=== PATIENT | male | born 1960 | race Caucasian/White ===

== ENCOUNTER 2017-05-26 15:33 | Inpatient (IN) | payer MEDICAID ==
[~2017-05-26] VITALS: Ht 188 cm; Wt 74.9 kg
[2017-05-26 17:03] LABS: Basophils # (auto) 0 uL; Basophils % (auto) 0.7 % (0.0-2.0); CONDITION Y; DEFINITIVE SEE PRINTOUT; Eosinophils # (auto) 0 uL; Hematocrit 34.3 % (41.0-53.0); Hemoglobin 11.6 g/dL (13.5-17.5); Lymphocytes # (auto) 1.3 uL; Lymphocytes % (auto) 25.9 % (10.0-50.0); Mean Corpuscular Hemoglobin 28.6 pg (28.0-32.0); Mean Corpuscular Hgb Conc. 33.8 g/dL (32.0-36.0); Mean Corpuscular Volume 84.4 fL (80.0-100.0); Mean Platelet Volume 9.4 fL (7.4-10.4); Monocytes # (auto) 0.6 uL; Monocytes % (auto) 11.7 % (0.0-12.0); Neutrophils # (auto) 3.1 uL; Neutrophils % (auto) 61.7 % (37.0-80.0); Platelet Count (auto) 120 10^3/uL (140-450); Red Cell Distribution Width 19.8 % (11.6-16.0)
[2017-05-26 17:14] LABS: Urine Bilirubin Negative (Negative); Urine Blood TRACE /uL (Negative); Urine Color Yellow (Yellow); Urine Glucose Normal (Normal); Urine Ketone Negative (Negative); Urine Nitrite Negative (Negative); Urine RBC 2 /hpf (0 - 3); Urine Squamous Epithelial Cell FEW /hpf (<5); Urine Urobilinogen Normal (Negative); Urine pH 7.5 (5.0-8.0)
[2017-05-26 17:19] LABS: INR 1.36 (0.9-1.15); Partial Thromboplastin Time 34.8 sec (22.64-33.71); Prothrombin Time 14.9 sec (9.37-12.3)
[2017-05-26 17:27] LABS: Platelet Estimate Decreased
[2017-05-26 17:29] LABS: Burr Cells FEW; Ovalocytes FEW
[2017-05-26 17:30] LABS: Anisocytosis Slight
[2017-05-26 17:31] LABS: Tear Drop Cells FEW
[2017-05-26 17:38] LABS: Albumin 2.9 g/dL (3.4-5.0); Anion Gap 12 (5-15); Aspartate Aminotransferase 53 U/L (15-37); Blood Urea Nitrogen 14 mg/dL (7-18); Calcium 8.4 mg/dL (8.5-10.1); Carbon Dioxide 21 mmol/L (21-32); Chloride 104 mmol/L (98-107); GFR African American 100 mL/min; GFR Non-African American 82 mL/min; Glucose 90 mg/dL (74-106); Magnesium 2.7 mg/dL (1.6-2.6); Potassium 4.3 mmol/L (3.5-5.1); Sodium 137 mmol/L (136-145)
[2017-05-26 17:43] LABS: Alkaline Phosphatase 116 U/L (45-117); Bilirubin, Total 3.4 mg/dL (0.2-1.0); Total Protein 7.4 g/dL (6.4-8.2)
[2017-05-26] MEDS ORDERED: DEXTROSE (50%) 50ML SYRG IV ONE (17:45)
[2017-05-26] MEDS ORDERED: LORazepam 2MG/ML-1ML VIAL IV PRN (21:15)
[2017-05-26] MEDS ORDERED: LACTULOSE 20Gm/30ML SOLN PO ONE ×2 (21:15)
[2017-05-26] MEDS ORDERED: FURO40TA4 PO (21:19)
[2017-05-26] MEDS ORDERED: NEO500T GT (21:19)
[2017-05-26] MEDS ORDERED: SPIR50TA23 PO (21:20)
[2017-05-26] MEDS ORDERED: PANT40TA2 PO (21:21)
[2017-05-26] MEDS ORDERED: LACT10SO3 PO (21:21)
[2017-05-26] MEDS ORDERED: FOLITAB22 PO (21:25)
[2017-05-26] MEDS ORDERED: CYA100I IM (21:25)
[2017-05-26 21:41] LABS: Amylase 65 U/L (25-115)
[2017-05-26] MEDS ORDERED: LACTULOSE 20Gm/30ML SOLN PO SCH (22:00)
[2017-05-27 05:00] VITALS: BP 113/70
[2017-05-27 06:28] LABS: Basophils # (auto) 0 uL; Basophils % (auto) 0.5 % (0.0-2.0); CONDITION Y; Eosinophils # (auto) 0.1 uL; Eosinophils % (auto) 1.4 % (0.0-7.0); Hemoglobin 16.2 g/dL (13.5-17.5); Lymphocytes # (auto) 1.9 uL; Lymphocytes % (auto) 21.6 % (10.0-50.0); Mean Corpuscular Hemoglobin 29.9 pg (28.0-32.0); Mean Corpuscular Hgb Conc. 34.5 g/dL (32.0-36.0); Mean Corpuscular Volume 86.7 fL (80.0-100.0); Mean Platelet Volume 9.6 fL (7.4-10.4); Monocytes # (auto) 0.8 uL; Monocytes % (auto) 8.4 % (0.0-12.0); Neutrophils # (auto) 6.1 uL; Neutrophils % (auto) 68.1 % (37.0-80.0); Platelet Count (auto) 337 10^3/uL (140-450)
[2017-05-27 07:41] VITALS: BP 119/65
[2017-05-27 08:02] LABS: Albumin 3.3 g/dL (3.4-5.0); Calcium 8.9 mg/dL (8.5-10.1); Potassium 3.7 mmol/L (3.5-5.1)
[2017-05-27 08:05] LABS: Bilirubin, Total 0.6 mg/dL (0.2-1.0); Total Protein 7.5 g/dL (6.4-8.2)
[2017-05-27] MEDS: PANTOPRAZOLE 40 MG TAB PO SCH (09:01)
[2017-05-27] MEDS: FOLIC ACID 1 MG TAB PO SCH (09:01)
[2017-05-27] MEDS: SPIRONOLACTONE 25 MG TAB PO SCH (09:01)
[2017-05-27] MEDS: ONDANSETRON HCL 4 MG/2 ML VIAL IV PRN (11:00)
[2017-05-27 12:12] VITALS: BP 110/65
[2017-05-27] MEDS: THIAMINE INJ 100 MG, MULTIPLE VITAMIN 10 ML, FOLIC ACID 1 MG, MAGNESIUM SULF SDV 50% 8 ... IV SCH ×5 (12:33)
[2017-05-27 17:23] VITALS: BP 101/57
[2017-05-27 22:00] VITALS: BP 110/64
[2017-05-28 05:00] VITALS: BP 112/66
[2017-05-28 06:40] LABS: Basophils # (auto) 0 uL; Basophils % (auto) 0.8 % (0.0-2.0); CONDITION Y; DEFINITIVE SEE PRINTOUT; Eosinophils # (auto) 0 uL; Eosinophils % (auto) 0.2 % (0.0-7.0); Hematocrit 31.5 % (41.0-53.0); Hemoglobin 10.6 g/dL (13.5-17.5); Lymphocytes # (auto) 1.6 uL; Lymphocytes % (auto) 34.7 % (10.0-50.0); Mean Corpuscular Hemoglobin 28.5 pg (28.0-32.0); Mean Corpuscular Hgb Conc. 33.8 g/dL (32.0-36.0); Mean Corpuscular Volume 84.5 fL (80.0-100.0); Mean Platelet Volume 9.6 fL (7.4-10.4); Monocytes # (auto) 0.5 uL; Monocytes % (auto) 11.1 % (0.0-12.0); Neutrophils # (auto) 2.4 uL; Neutrophils % (auto) 53.2 % (37.0-80.0); Platelet Count (auto) 101 10^3/uL (140-450); Red Cell Distribution Width 19.5 % (11.6-16.0); White Blood Cell 4.6 10^3/uL (4.4-10.8)
[2017-05-28 06:57] LABS: Albumin 2.7 g/dL (3.4-5.0); BUN/Creatinine Ratio 16.3; Bilirubin, Total 4.4 mg/dL (0.2-1.0); Calcium 8.6 mg/dL (8.5-10.1); Magnesium 2.4 mg/dL (1.6-2.6); Potassium 4.1 mmol/L (3.5-5.1); Total Protein 6.7 g/dL (6.4-8.2)
[2017-05-28 08:00] VITALS: BP 104/63
[2017-05-28] MEDS: SPIRONOLACTONE 25 MG TAB PO SCH (09:16)
[2017-05-28] MEDS: PANTOPRAZOLE 40 MG TAB PO SCH (09:16)
[2017-05-28] MEDS: FOLIC ACID 1 MG TAB PO SCH (09:17)
[2017-05-28 09:27] VITALS: BP 104/63
[2017-05-28] MEDS: LACTULOSE 20Gm/30ML SOLN PO SCH ×3 (12:00→23:58)
[2017-05-28] MEDS: THIAMINE INJ 100 MG, MULTIPLE VITAMIN 10 ML, FOLIC ACID 1 MG, MAGNESIUM SULF SDV 50% 8 ... IV SCH ×5 (12:00)
[2017-05-28 14:18] VITALS: BP 111/67
[2017-05-28] MEDS: D5W/SOD CHLO 0.9% 1,000 ML IV SCH (14:45)
[2017-05-28 17:28] VITALS: BP 106/63
[2017-05-28 22:07] VITALS: BP 130/71
[2017-05-29] MEDS: D5W/SOD CHLO 0.9% 1,000 ML IV SCH ×2 (05:08→20:41)
[2017-05-29] MEDS: LACTULOSE 20Gm/30ML SOLN PO SCH ×3 (05:08→18:21)
[2017-05-29 05:30] VITALS: BP 132/77
[2017-05-29 07:14] LABS: Basophils # (auto) 0 uL; Basophils % (auto) 0.4 % (0.0-2.0); CONDITION Y; DEFINITIVE SEE PRINTOUT; Eosinophils # (auto) 0 uL; Hematocrit 30.3 % (41.0-53.0); Hemoglobin 10.5 g/dL (13.5-17.5); Lymphocytes # (auto) 1.3 uL; Lymphocytes % (auto) 26.6 % (10.0-50.0); Mean Corpuscular Hemoglobin 28.9 pg (28.0-32.0); Mean Corpuscular Hgb Conc. 34.5 g/dL (32.0-36.0); Mean Corpuscular Volume 83.6 fL (80.0-100.0); Mean Platelet Volume 9.4 fL (7.4-10.4); Monocytes # (auto) 0.5 uL; Monocytes % (auto) 10.1 % (0.0-12.0); Neutrophils % (auto) 62.9 % (37.0-80.0); Platelet Count (auto) 95 10^3/uL (140-450); Red Cell Distribution Width 19.5 % (11.6-16.0); White Blood Cell 4.7 10^3/uL (4.4-10.8)
[2017-05-29 07:30] LABS: Albumin 2.6 g/dL (3.4-5.0); BUN/Creatinine Ratio 16.2; Bilirubin, Total 4.1 mg/dL (0.2-1.0); Calcium 8.2 mg/dL (8.5-10.1); Potassium 3.6 mmol/L (3.5-5.1); Total Protein 6.7 g/dL (6.4-8.2)
[2017-05-29 08:04] LABS: Anisocytosis Slight; Large Platelets FEW; Platelet Estimate Decreased
[2017-05-29 09:00] VITALS: BP 107/64
[2017-05-29] MEDS: PANTOPRAZOLE 40 MG TAB PO SCH (10:26)
[2017-05-29] MEDS: FOLIC ACID 1 MG TAB PO SCH (10:26)
[2017-05-29] MEDS: SPIRONOLACTONE 25 MG TAB PO SCH (10:26)
[2017-05-29] MEDS: THIAMINE INJ 100 MG, MULTIPLE VITAMIN 10 ML, FOLIC ACID 1 MG, MAGNESIUM SULF SDV 50% 8 ... IV SCH ×5 (12:27)
[2017-05-29 13:00] VITALS: BP 112/66
[2017-05-29 16:45] VITALS: BP 118/69
[2017-05-29 23:14] VITALS: BP 107/66
[2017-05-30] MEDS: LACTULOSE 20Gm/30ML SOLN PO SCH ×5 (00:33→21:46)
[2017-05-30] MEDS: ONDANSETRON HCL 4 MG/2 ML VIAL IV PRN ×3 (02:49→21:46)
[2017-05-30] MEDS: MORPHINE SULF INJ 2 MG/ML SYRINGE 1ML IV PRN ×3 (02:49→21:46)
[2017-05-30 05:20] VITALS: BP 115/63
[2017-05-30 05:36] LABS: Albumin 2.5 g/dL (3.4-5.0); BUN/Creatinine Ratio 14.5; Calcium 7.8 mg/dL (8.5-10.1); Potassium 4.1 mmol/L (3.5-5.1)
[2017-05-30 05:39] LABS: Bilirubin, Total 4.1 mg/dL (0.2-1.0); Total Protein 6.3 g/dL (6.4-8.2)
[2017-05-30 08:30] VITALS: BP 112/66
[2017-05-30] MEDS: SPIRONOLACTONE 25 MG TAB PO SCH (08:59)
[2017-05-30] MEDS: FOLIC ACID 1 MG TAB PO SCH (08:59)
[2017-05-30] MEDS: PANTOPRAZOLE 40 MG TAB PO SCH (09:00)
[2017-05-30] MEDS: THIAMINE INJ 100 MG, MULTIPLE VITAMIN 10 ML, FOLIC ACID 1 MG, MAGNESIUM SULF SDV 50% 8 ... IV SCH ×5 (11:35)
[2017-05-30] MEDS: D5W/SOD CHLO 0.9% 1,000 ML IV SCH ×2 (11:35→21:46)
[2017-05-30 12:30] VITALS: BP 107/66
[2017-05-30 17:23] VITALS: BP 105/64
[2017-05-30 21:56] VITALS: BP 98/56
[2017-05-31] MEDS: LACTULOSE 20Gm/30ML SOLN PO SCH ×2 (04:03→11:55)
[2017-05-31 05:00] VITALS: BP 107/61
[2017-05-31 06:06] LABS: Basophils # (auto) 0 uL; Basophils % (auto) 0.5 % (0.0-2.0); CONDITION Y; DEFINITIVE SEE PRINTOUT; Eosinophils # (auto) 0 uL; Hematocrit 30.2 % (41.0-53.0); Hemoglobin 10.1 g/dL (13.5-17.5); Lymphocytes # (auto) 1.4 uL; Lymphocytes % (auto) 31.1 % (10.0-50.0); Mean Corpuscular Hemoglobin 28.8 pg (28.0-32.0); Mean Corpuscular Hgb Conc. 33.5 g/dL (32.0-36.0); Mean Corpuscular Volume 85.9 fL (80.0-100.0); Mean Platelet Volume 9.4 fL (7.4-10.4); Monocytes # (auto) 0.5 uL; Monocytes % (auto) 11.2 % (0.0-12.0); Neutrophils # (auto) 2.6 uL; Neutrophils % (auto) 57.2 % (37.0-80.0); Platelet Count (auto) 97 10^3/uL (140-450); Red Cell Distribution Width 19.9 % (11.6-16.0); White Blood Cell 4.6 10^3/uL (4.4-10.8)
[2017-05-31 06:38] LABS: Potassium 4.2 mmol/L (3.5-5.1)
[2017-05-31 06:46] LABS: Albumin 2.5 g/dL (3.4-5.0); BUN/Creatinine Ratio 8.5; Calcium 8.2 mg/dL (8.5-10.1)
[2017-05-31 06:55] LABS: Bilirubin, Total 4.3 mg/dL (0.2-1.0); Total Protein 6.2 g/dL (6.4-8.2)
[2017-05-31] MEDS: PANTOPRAZOLE 40 MG TAB PO SCH (08:06)
[2017-05-31] MEDS: SPIRONOLACTONE 25 MG TAB PO SCH (08:07)
[2017-05-31] MEDS: FOLIC ACID 1 MG TAB PO SCH (08:07)
[2017-05-31 08:30] VITALS: BP 102/61
[2017-05-31] MEDS: D5W/SOD CHLO 0.9% 1,000 ML IV SCH (09:20)
[2017-05-31] MEDS: THIAMINE INJ 100 MG, MULTIPLE VITAMIN 10 ML, FOLIC ACID 1 MG, MAGNESIUM SULF SDV 50% 8 ... IV SCH ×5 (11:47)
== END 2017-05-31 12:11 | disposition home or self-care (01) | DRG 279 ==
LOC: ER 15:33 → OVERFLOW 15:34 → WEST WING 22:25
PROVIDERS: ADMIT Nurse Practitioner Family; ATTEND Internal Medicine
DX: K72.90 Hepatic failure, unspecified without coma (principal); E44.0 Moderate protein-calorie malnutrition; D69.59 Other secondary thrombocytopenia; K74.60 Unspecified cirrhosis of liver; D69.6 Thrombocytopenia, unspecified; D64.9 Anemia, unspecified; Z82.49 Family history of ischemic heart disease and other diseases of the circulatory system; K80.20 Calculus of gallbladder without cholecystitis without obstruction; Z68.21 Body mass index [BMI] 21.0-21.9, adult
CPT/HCPCS: 36415; 51702; 70450; 71010; 74176; 80053; 80307; 80320; 81001; 82140; 82150; 82962; 83690; 83735; 84484; 85025; 85610; 85730; 93005; 94761; 96374; J2405; J7042